=== PATIENT | female | born 1965 | race Caucasian/White ===

== ENCOUNTER 2021-07-08 17:25 | Outpatient (CLI) | payer OTHER | END 2021-07-08 17:26 | disposition short-term general hospital (02) | LOC: EMS 17:25 | DX: S89.92XA Unspecified injury of left lower leg, initial encounter (principal); W01.0XXA Fall on same level from slipping, tripping and stumbling without subsequent striking against object, initial encounter; Y93.01 Activity, walking, marching and hiking; Y92.838 Other recreation area as the place of occurrence of the external cause | CPT/HCPCS: A0425; A0427 ==

== ENCOUNTER 2023-04-11 15:32 | Outpatient (CLI) | payer OTHER ==
--- NOTE | 2023-04-11 16:01 | Sleep Patient Instructions ---
Sleep Center Visit Summary - Patient Visit Information Reason for Visit: Initial consult for evaluation of sleep disordered breathing and other sleep issues. - Patient Instructions Instructions Attached: Sleep Study, Sleep Study Home Monitor Additional Instructions: You will be completing a sleep study, either an in-lab polysomnography (PSG) or home sleep study (HST). You will follow-up in the sleep care office after the sleep study is completed to hear the results and talk about therapy, if needed. You will be called by our office staff to schedule this appointment, but you may contact us with any questions. - Clinic Information Contact: [facility] [address] [place] [id number] [email or web address] T: [phone]
--- NOTE | 2023-04-11 16:03 | SLEEP CARE CONSULTATION ---
Information from patient questionnaire entered by Humera Hernandez. I have reviewed and concur with the information entered by Humera Hernandez. This document represents the service I personally performed and the decisions made by me, Jeny May ARNP. History of Present Illness Service Date and Time: 04/11/2023 1540 Reason for Visit: New patient Chief Complaint: reports: Unrefreshed sleep, Snoring, Observed pauses in breathing, Fatigue Date of Onset: 5YRS Usual bedtime: 9PM Time it takes to fall asleep: 30MINS-2HRS Snores at night: Yes Observed to quit breathing while asleep: Yes Sleeps alone due to snoring: Yes Number of times waking at night: 10-20, according to [employer] Reasons for waking at night: reports: Bathroom, Other (NOISE; dry throat). denies: Choking, Snoring, Gasping for air Toss, Turn, or Twitch while sleeping: Yes Recalls having dreams: Yes Feels refreshed in the morning: No Morning headache: Yes (5 days a week; last within hour or has to take migraine meds) Sleepy or fatigued during the day: Yes Ever fallen asleep while driving: Yes (drowsy driving, no accidents) Takes day naps: Yes (just on weekends; 30 minutes to 3 hrs) Dreams during day naps: Yes Prior sleep studies: No Additional HPI information: I had the pleasure of seeing THOMAS MOORE today regarding the possibility of her having a sleep disorder. Her current complaints are unrefreshed sleep, snoring, observed pauses in breathing and fatigue. She says her doctor referred her because when she broke her leg 3 years ago, the nurse in the hospital told her that they had to put oxygen on her because she stopped breathing at night. She says she has frequent headaches in the morning. She is having high blood pressure readings recently but is not on medications at this time. She says she does not wake up feeling refreshed and has some fatigue during the day. She is usually only naps on the weekends when her eyes get heavy. Her mother had sleep apnea and was on a PAP machine. - Parasomnia Symptoms Ever been unable to move upon waking from sleep: No Walks in sleep: No Talks in sleep: Yes (screams, if dreaming of being chased) Ever acted out dreams in sleep: Yes Ever felt weak in the knees when startled or emotional: No Bothered by creepy, crawly, restless sensations in legs: Yes (happens when still; feels like got to move legs) Problems with memory or concentration: Yes (both) Subjective Initial [place] Sleepiness Scale score: 11 (04/10/23) Past Medical History Past Medical History: reports: Arthritis, Anxiety, Depression, Other (HYP ERLIPIDEMIA, MIGRAINES) Social History The patient's occupation is a [employer]. Patient is and lives in [place]. Have you smoked in the past 12 months: No Cigarettes per day (20/pack): 20 Years of smokin Quit date: 01/2013 Smoking Pack Years: 21.0 Alcohol use: Yes Alcohol amount and frequency: 2 DRINKS 3-4 DAYS A WEEK Caffeine use: Yes Caffeine amount and frequency: 2 CUPS DAILY Family History Family history of sleep disordered breathing: Yes Family Hx Sleep Apnea: Mother: Snoring, Sleep apnea - Treated Allergies and Home Medications Known drug allergies: No Drug allergies reviewed: Yes Home medication list reviewed: Yes Allergy and home medication list: Allergies No Known Drug Allergies Allergy (Verified 04/09/23 16:20) Home Medications Medication Instructions Recorded Confirmed Last Taken Type Sertraline [Zoloft] 50 mg PO DAILY 06/01/16 04/11/23 06/01/16 History Atorvastatin [Lipitor] See Rx Instructions .ROUTE .COMPLEX 04/11/23 04/11/23 Unknown History Rizatriptan Benzoate [Rizatriptan] See Rx Instructions .ROUTE .COMPLEX 04/11/23 04/11/23 Unknown History Sertraline HCl See Rx Instructions .ROUTE .COMPLEX 04/11/23 04/11/23 Unknown History buPROPion [Wellbutrin Sr] See Rx Instructions .ROUTE .COMPLEX 04/11/23 04/11/23 Unknown History Review of Systems Weight gain over past 5 years: 51, no change in last year Weight loss over past 5 years: 43 Cardiovascular: denies: high blood pressure Respiratory: denies: shortness of breath Gastrointestinal: denies: heartburn Neurological: reports: headaches Psychiatric: reports: anxiety, depression Ear/Nose/Throat: reports: tonsillectomy Endocrine: reports: sluggishness Musculoskeletal: reports: joint pain, neck pain, back pain, muscle pain or cramping Physical Exam Vital signs obtained and entered by: HUMERA Gonzalez MA Blood Pressure: 137/93 (LEFT ARM) Cuff size: regular Heart Rate: 89 O2 Saturation: 99 Height: 5 ft 9 in Weight: 240 lb 9.6 oz Body Mass Index: 35.5 BMI Classification: Obese Neck circumference: 16.25 Mouth and throat: narrow oropharynx Soft palate: long Hard palate: normal Uvula: normal Uvula visualization: 25% Mallampati Class III Tongue: enlarged in size with teeth [place] on lateral edges Tonsils: absent bilaterally Neck: normal w/o lymphadenopathy or thyromegaly Heart: regular rate and rhythm Lungs: clear bilaterally Impression and Plan 1. Suspected Obstructive Sleep Apnea-Hypopnea Syndrome, as suggested by a history of loud and irregular snoring, observed cessation of breath while asleep, morning headache, frequent awakening during the night, unrefreshed sleep, cognitive impairment, and excessive daytime sleepiness. Narrow oropharynx and obesity are common predisposing factors for obstructive sleep apnea-hypopnea syndrome. I recommend proceeding to polysomnography to confirm the diagnosis and to assess severity. If the patient has significant sleep disordered breathing, a manual CPAP titration study will also be performed to find the optimal treatment pressure. I informed the patient of what the sleep studies involve and after some discussion, obtained agreement to proceed. The pathophysiology of obstructive sleep apnea-hypopnea syndrome was discussed with the patient and health risks of cardiovascular and cerebrovascular disease if not treated. Risks of drowsy driving discussed in detail and patient advised to avoid long distance driving and to lathe puller at the first sign of drowsiness. Patient agreed to plan. * Schedule polysomnography * Avoid long distance driving or driving when feeling sleepy. * Avoid alcohol, sedative and muscle relaxant around bedtime. * Attempt to lose weight. * Review instructions provided by trained office staff on how to prepare for the sleep study. * Return for follow-up after sleep study completed. Counseling Topics: Weight loss health impact Plan: PSG/HST Visit Type: In Office Time Spent with Patient (minutes): 30 Provider Statement: I spent 100% of the Face to Face Visit with the patient with greater than 50% spent counseling the patient and coordination of care.
[2023-04-11 16:10] VITALS: BP 137/93; O2SAT 99
== END 2023-04-11 15:33 | disposition home or self-care (01) ==
LOC: SC 15:32
PROVIDERS: ATTEND Nurse Practitioner Family
DX: G47.10 Hypersomnia, unspecified (principal); R53.83 Other fatigue; G47.8 Other sleep disorders; R51.9 Headache, unspecified; R06.83 Snoring; R06.81 Apnea, not elsewhere classified; R41.89 Other symptoms and signs involving cognitive functions and awareness; F32.A Depression, unspecified; E66.9 Obesity, unspecified; Z68.35 Body mass index [BMI] 35.0-35.9, adult; Z87.891 Personal history of nicotine dependence
CPT/HCPCS: 99203; 99212

== ENCOUNTER 2023-04-23 20:32 | Outpatient (CLI) | payer OTHER | END 2023-04-23 20:33 | disposition home or self-care (01) | LOC: SC 20:32 | PROVIDERS: ATTEND Nurse Practitioner Family | DX: G47.33 Obstructive sleep apnea (adult) (pediatric) (principal); G47.61 Periodic limb movement disorder | CPT/HCPCS: 95810 ==

== ENCOUNTER 2023-05-07 13:25 | Outpatient (CLI) | payer OTHER ==
--- NOTE | 2023-05-07 14:09 | Sleep Patient Instructions ---
Sleep Center Visit Summary - Patient Visit Information Reason for Visit: Sleep study follow-up - Patient Instructions Instructions Attached: CPAP Additional Instructions: You are being started on CPAP therapy with pressure setting at 4-15 cmH2O. You will need to call the sleep care office to set up your follow up once you have your APAP machine and we will schedule a visit to check compliance and response to therapy at that time. You may call the office with any concerns about pressure feeling too low or too much for adjustment, if needed. You should contact DME supplier for any questions or concerns about mask or equipment. Please call office to schedule a follow up appointment in the sleep care office one month after obtaining new device. - Clinic Information Contact: [facility] [address] [place] [address] [email or web address] T: [phone]
--- NOTE | 2023-05-07 14:11 | SLEEP CARE CONSULTATION ---
Information from patient questionnaire entered by Susi Hernandez. I have reviewed and concur with the information entered by Susi Hernandez. This document represents the service I personally performed and the decisions made by me, Jeny May ARNP. History of Present Illness Service Date and Time: 05/07/2023 1325 Initial [place] Sleepiness Scale score: 11 (04/10/23) Current [place] Sleepiness Scale score: 12 (05/07/23) Additional HPI information: THOMAS MOORE returns for follow up and results of the recently performed polysomnography. The sleep study showed moderate obstructive sleep apnea with an average AHI of 24.8 and glynn oxygen saturation of 81%. She had severe PLMs not contributing to sleep fragmentation. I explained the pathophysiology behind obstructive sleep apnea. We then spent quite a bit of time discussing different treatment options. For mild obstructive sleep apnea, surgery and oral appliance are alternatives to nasal CPAP therapy but in moderate or severe cases, nasal CPAP is the most effective and reliable treatment. I reviewed the impact of weight changes on sleep apnea and strongly recommended losing weight. After some discussion, the patient opted to go with the nasal CPAP therapy. Jordy al autoCPAP set at 4-15 cmH20 will be ordered with rationale explained. A manual titration study will be ordered if unable to find optimal pressure with office adjustments. I explained how CPAP machine works and what to expect when using the machine. Using CPAP every night in order to get used to it was emphasized. Patient advised to put CPAP mask on before getting into bed so as not to fall asleep without CPAP. To assist acclimation to CPAP use, it could also be used for a short time during day while reading or watching TV. The patient was instructed to call the CPAP supplier to discuss any mechanical problem that may occur. If the mask given is uncomfortable or is difficult to keep on through the night even with adjustment, contact the CPAP supplier as many will replace with another mask style if notified before 30 days. If snoring or perceives is not getting enough air or too much air from the machine, notify this office. Patient counseled not drink alcohol less than 4 hours before bedtime as it can increase snoring and apnea. Patient was cautioned about risks of drowsy driving until sleepiness symptoms resolve. Patient denies drowsy driving. Sleep Study - Results Type of Sleep Study: Polysomnography (COMPLETED 04/23/23) Prior sleep studies: No Polysomnography/Home Sleep Study results: IMPRESSION: The quality of the study is good. The patient had minimally reduced sleep efficiency. The sleep architecture was abnormal for sleep fragmentation and reduced amount of time spent in REM sleep. Respiratory monitoring showed moderate obstructive sleep apnea-hypopnea (AHI = 24.8) associated with frequent arousals, oxyhemoglobin desaturation and mild hypoxia (glynn oxygen saturation of 81%). The respiratory events occurred more frequently during supine sleep (supine AHI = 31.3; non-supine = 22.11). Snore was light to loud in intensity. There was severe periodic leg movement of sleep not contributing to the sleep fragmentation. Cardiac rhythm was normal sinus rhythm without significant arrhythmia. No abnormal behavior (parasomnia) observed during the night. Allergies and Home Medications Known drug allergies: No Drug allergies reviewed: Yes Home medication list reviewed: Yes (no changes) Allergy and home medication list: Allergies No Known Drug Allergies Allergy (Verified 05/03/23 11:39) Review of Systems Review of systems same as previous: Yes (NO CHANGE) Physical Exam Vital signs obtained and entered by: SUSI Gonzalez MA Blood Pressure: 133/86 (RIGHT ARM) Cuff size: regular Heart Rate: 90 O2 Saturation: 96 Height: 5 ft 9 in Weight: 239 lb 6.4 oz Body Mass Index: 35.3 BMI Classification: Obese Impression and Plan 1. Obstructive Sleep Apnea-Hypopnea Syndrome, moderate, with lowest oxygen saturation of 81%. Obviously this is the cause of the patients symptoms of unrefreshed sleep, and excessive daytime sleepiness. Positive pressure therapy could benefit anxiety, depression and migraines. As mentioned above, the patient will be started on nasal autoCPAP therapy with pressure set at 4-15 cmH2 O. A manual titration study will be completed if unable to find optimal treatment pressure with office adjustments. Compliance guidelines also reviewed. A copy of compliance guidelines will be given for reference at check out. Because the apnea is more severe supine, I instructed to avoid sleeping supine using pillow positioning until able to start CPAP use. 2. Hypoxemia, mild, with a glynn oxygen saturation of 81% and 33.3 minutes spent under 90%. The baseline oxygen saturation was normal with an average oxygen saturation of 91%. 3. Periodic limb movement, severe, that did not fragment patients sleep. Periodic limb movement of sleep (PLMS) is characterized by episodes of repetitive limb movements that occur during sleep and usually involve the lower limbs. The etiology is unknown. Sleep hygiene methods can also improve sleep as well as lifestyle changes such as regular exercise. Patient was advised that no treatment is needed at this time. If symptoms increase, then further evaluation is indicated. 4. Obesity, unspecified. Currently patients BMI is 35.3. Obesity increases the risk of apnea, CPAP pressure requirements and overall health risks especially cardiovascular and diabetes. Thus patient is advised to lose weight. * Nasal auto CPAP therapy, pressure at 4-15 cm H2O. * Attempt to lose weight. * Avoid alcohol consumption near bedtime. * Avoid supine sleep until using CPAP. * The patient is again cautioned about driving until sleepiness completely resolves. * Return one month after CPAP obtained. I will assess response to therapy and compliance at that time. Counseling Topics: Weight loss health impact Prescriptions: Auto CPAP Follow up with Sleep Care in: other (compliance follow up) Visit Type: In Office Time Spent with Patient (minutes): 20 Provider Statement: I spent 100% of the Face to Face Visit with the patient with greater than 50% spent counseling the patient and coordination of care.
[2023-05-07 14:21] VITALS: BP 133/86; O2SAT 96
== END 2023-05-07 13:26 | disposition home or self-care (01) ==
LOC: SC 13:25
PROVIDERS: ATTEND Nurse Practitioner Family
DX: G47.33 Obstructive sleep apnea (adult) (pediatric) (principal); R09.02 Hypoxemia; G47.61 Periodic limb movement disorder; E66.9 Obesity, unspecified; Z68.35 Body mass index [BMI] 35.0-35.9, adult
CPT/HCPCS: 99212; 99213